=== PATIENT | male | born 1990 | race Caucasian/White ===

== ENCOUNTER 2021-08-21 12:20 | Emergency (ER) | payer SELFPAY ==
[~2021-08-21] VITALS: Ht 167.6 cm; Wt 95.4 kg
[2021-08-21 12:20] VITALS: BP 145/83
[2021-08-21] MEDS ORDERED: HYDROcodone/APAP 5/325MG 1 TAB TABLET PO ONE (13:00)
--- NOTE | 2021-08-21 13:22 | RAD ---
PA CHEST AND LEFT RIB SERIES Clinical Indication: Reason: injury /, pain Comparison: None. Findings: The cardiomediastinal silhouette is normal. Pulmonary vasculature is normal. The lungs are clear. No pleural effusion or pneumothorax is seen. There is no acute displaced rib fracture. A nondisplaced or subtle rib fracture could be obscured. IMPRESSION: 1. No acute cardiopulmonary process. 2. No acute displaced rib fracture. Electronically signed by: Ulises Larkin MD (08/21/2021 1:20 PM) [id number]
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
[2021-08-21] MEDS ORDERED: HYDR-2761 PO (13:51)
== END 2021-08-21 14:01 | disposition home or self-care (01) ==
LOC: ER 12:20
DX: R07.89 Other chest pain (principal)
CPT/HCPCS: 71101; 99283